=== PATIENT | male | born 1980 | race Caucasian/White ===

== ENCOUNTER 2022-03-19 18:00 | Observation (INO) ==
[2022-03-19 19:03] LABS: Basophils # 0.1 K/mcL (0.0-0.2); Basophils % 0.8 %; Eosinophils # 0.1 K/mcL (0.0-0.6); Eosinophils % 2.1 %; Hematocrit 46.1 % (37.5-50.1); Hemoglobin 15.4 g/dL (12.9-16.9); Immature Granulocytes % 0.3 % (0-4); Lymphocytes # 1.6 K/mcL (0.6-4.6); Lymphocytes % 25.1 %; Mean Corpuscular HGB Conc 33.4 g/dL (31.6-35.5); Mean Corpuscular Hemoglobin 29.8 pg (28.0-33.3); Mean Corpuscular Volume 89.2 fL (83.0-100.0); Mean Platelet Volume 10.3 fL (9.4-12.4); Monocytes % 15.2 %; Neutrophils # 3.7 K/mcL (1.6-8.9); Platelet Count 215 K/mcL (140-400); Red Blood Count 5.17 M/mcL (4.19-5.50); Red Cell Distribution Width 12.7 % (11.5-14.5); Segmented Neutrophils % 56.5 %; White Blood Count 6.5 K/mcL (4.3-11.1)
[2022-03-19 19:26] LABS: BUN/Creatinine Ratio 12 (6-26); Blood Urea Nitrogen 12 mg/dL (6-20); Calcium 8.8 mg/dL (8.6-10.3); Carbon Dioxide 25 mEq/L (23-29); Chloride 105 mEq/L (98-107); Glucose 99 mg/dL (70-105); Osmolality,Calculated 282 (280-300); Potassium 4.3 mEq/L (3.5-5.1); Sodium 136 mEq/L (136-145)
[2022-03-19] MEDS ORDERED: Iopamidol - 370 500 ML MLS IVP ONE (20:05)
[2022-03-19 20:28] LABS: Alanine Aminotransferase 39 Units/L (7-52); Albumin 4.2 g/dL (3.5-5.7); Albumin/Globulin Ratio 1.4 (1.1-2.2); Alkaline Phosphatase 68 Units/L (34-104); Aspartate Amino Transferase 28 Units/L (13-39); Bilirubin,Direct 0.2 mg/dL (0.0-0.2); Bilirubin,Indirect 0.6 mg/dL (0.0-1.0); Bilirubin,Total 0.8 mg/dL (0.3-1.0); Total Protein 7.2 g/dL (6.4-8.9)
[2022-03-19 20:34] LABS: Bilirubin,Urine Negative (Negative); Blood,Urine Large (Negative); Clarity,Urine Turbid (Clear); Color,Urine Light-Orange (Yellow); Glucose,Urine (UA) Normal (Normal); Ketones,Urine Negative (Negative); Leukocyte Esterase,Urine Small (Negative); Mucus,Urine Few per lpf (None-Few); Nitrite,Urine Negative (Negative); Protein,Urine 100 mg/dL (Neg-Trace); RBC,Urine TNTC per hpf (0-3); Specific Gravity,Urine 1.022 (1.010-1.025); Urobilinogen,Urine Normal (Normal); WBC,Urine 30-50 per hpf (0-3)
[2022-03-19] MEDS ORDERED: 0.9 % Sodium Chloride 1,000 ML IV ONE (20:47)
[2022-03-19] MEDS ORDERED: Ketorolac 30 MG/ML VIAL IVP ONE (20:47)
[2022-03-19] MEDS ORDERED: Piperacillin/Tazobactam 3.375 GM in 0.9 % Sodium Chloride Mini Bag 100 ML IVP ONE (22:12)
[2022-03-20] MEDS: Piperacillin/Tazobactam 3.375 GM in 0.9 % Sodium Chloride Mini Bag 100 ML IVPB SCH ×3 (02:57→18:01)
[2022-03-20] MEDS ORDERED: *HR* Propofol 200 MG/20 ML VIAL IVP ONE (10:53)
[2022-03-20] MEDS ORDERED: Lidocaine HCL 4 ML Topical Solution (Laryng-O-Jet Kit Sterile Pak) TP ONE (10:53)
[2022-03-20] MEDS ORDERED: *HR* FentaNYL (PF) 100 MCG/2 ML VIAL ONE (10:53)
[2022-03-20] MEDS ORDERED: *HR* Midazolam HCl 2 MG/2 ML VIAL ONE (10:53)
[2022-03-20] MEDS ORDERED: Ondansetron 4 MG/2 ML VIAL ONE (10:55)
[2022-03-20] MEDS ORDERED: *HR* Succinylcholine 200 MG/10 ML VIAL IVP ONE (10:55)
[2022-03-20] MEDS ORDERED: *HR* Rocuronium Bromide 50 MG/5 ML VIAL ONE (10:55)
[2022-03-20] MEDS ORDERED: Lidocaine -MPF 2% 5 ML VIAL ONE (10:55)
[2022-03-20] MEDS ORDERED: Acetaminophen IV 1,000 MG/100 ML BAG IVPB ONE (11:39)
[2022-03-20] MEDS ORDERED: *HR* HYDROMORPHONE 2 MG/ML VIAL ONE (12:03)
[2022-03-20] MEDS ORDERED: Ketorolac 30 MG/ML VIAL ONE (12:05)
[2022-03-20] MEDS ORDERED: Sugammadex Sodium 200 MG/2 ML VIAL IV ONE (12:05)
[2022-03-20] MEDS: *HR* HYDROmorphone PF 0.5 MG/0.5 ML SYRINGE IVP PRN ×3 (13:00→13:17)
[2022-03-20] MEDS ORDERED: Promethazine 6.25 MG in Water for inj. (sterile) 20 ML IVPB PRN (13:38)
[2022-03-20] MEDS: Ketorolac 30 MG/ML VIAL IVP SCH (18:00)
[2022-03-20] MEDS: *HR* OxyCODONE/APAP 5/325 TABLET PO PRN (20:33)
[2022-03-21] MEDS: Piperacillin/Tazobactam 3.375 GM in 0.9 % Sodium Chloride Mini Bag 100 ML IVPB SCH ×2 (01:12→09:18)
[2022-03-21] MEDS: Ketorolac 30 MG/ML VIAL IVP SCH ×2 (01:12→05:41)
[2022-03-21 04:55] VITALS: TEMP 97.7
[2022-03-21] MEDS: *HR* OxyCODONE/APAP 5/325 TABLET PO PRN (05:15)
[2022-03-21 08:11] VITALS: BP 126/84; PULSE 64; O2SAT 97
[2022-03-21] MEDS ORDERED: Ibuprofen 400 MG TABLET PO STA (08:59)
== END 2022-03-21 11:43 | disposition home or self-care (01) ==
LOC: EMEROOARM 18:00 → 2ANU 18:00
PROVIDERS: ADMIT Surgery; ATTEND Surgery